=== PATIENT | male | born 1985 | race Two or more races ===

== ENCOUNTER → 2017-08-23 | Emergency (ER) | payer MEDICAID, OTHER ==
[~2017-08-23] VITALS: Ht 172.7 cm; Wt 68.0 kg
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
--- NOTE | 2017-08-23 16:45 | NUR ---
PT TO [facility].
--- NOTE | 2017-08-23 17:32 | NUR ---
Patient discharged to home in stable condition. Written and verbal after care instructions given. Patient verbalizes understanding of instruction. Prescription given.
[2017-08-23 17:33] VITALS: BP 130/78
== END | disposition home or self-care (01) ==
LOC: ER 16:07
DX: S13.4XXA Sprain of ligaments of cervical spine, initial encounter (principal); S50.02XA Contusion of left elbow, initial encounter; S80.02XA Contusion of left knee, initial encounter; V49.49XA Driver injured in collision with other motor vehicles in traffic accident, initial encounter; Y93.89 Activity, other specified; Y92.410 Unspecified street and highway as the place of occurrence of the external cause; Y99.9 Unspecified external cause status
CPT/HCPCS: 72125-TC; 73080-TC; 73562; A4606; Z7610